=== PATIENT | female | born 1975 | race Caucasian/White ===

== ENCOUNTER 2017-09-25 19:09 | Emergency (ER) | payer BC ==
[~2017-09-25] VITALS: Ht 167.6 cm; Wt 72.6 kg
[2017-09-25 19:24] VITALS: BP_SYST 175
[2017-09-25] MEDS ORDERED: PANTOPRAZOLE SODIUM 40 MG/VIAL (PROTONIX) IVP ONE (20:05)
[2017-09-25] MEDS ORDERED: LORazepam 2 MG/ML VIAL (FOR ER USE) IVP ONE (20:15)
[2017-09-25] MEDS ORDERED: NACL 0.9% 1,000 ML IV ONE (20:15)
[2017-09-25 20:23] LABS: CALCIUM 8.7 mg/dL (8.4-11.0); CREATININE 0.72 mg/dL (0.55-1.30); POTASSIUM 3.9 mmol/L (3.5-5.1)
[2017-09-25 20:24] LABS: RED CELL DISTRIBUTION WIDTH 16.5 % (9.0-15.0); WHITE BLOOD COUNT (AUTO) 7.5 K/uL (4.8-10.8)
[2017-09-25 20:28] LABS: PROTHROMBIN TIME 9.7 SECS (9.5-12.5)
[2017-09-25 20:30] LABS: ALBUMIN 3.2 g/dL (3.4-4.8); TOTAL BILIRUBIN 0.4 mg/dL (0.0-1.0)
[2017-09-25 20:31] LABS: BASOPHILS # (AUTO) 0.1 K/uL (0.0-0.2); BASOPHILS % (AUTO) 0.9 % (0.0-2.0); EOSINOPHILS % (AUTO) 0.4 % (0.0-4.0); HEMATOCRIT 36.9 % (36-48); HEMOGLOBIN 12.2 g/dL (12.0-16.0); LYMPHOCYTES # (AUTO) 1.9 K/uL (1.0-5.5); LYMPHOCYTES % (AUTO) 25.5 % (20.5-51.5); MEAN CORPUSCULAR HEMOGLOBIN 30 pg (27-31); MEAN CORPUSCULAR HGB CONC 33 % (32-36); MEAN CORPUSCULAR VOLUME 92 fL (79.0-98.0); MONOCYTES # (AUTO) 0.3 K/uL (0.0-1.0); MONOCYTES % (AUTO) 4.5 % (1.7-9.3); NEUTROPHILS # (AUTO) 5.2 K/uL (1.8-7.7); NEUTROPHILS % (AUTO) 68.7 % (40.0-70.0); PLATELET COUNT (AUTO) 233 K/uL (130-430); RED BLOOD CELL COUNT(AUTO) 4.03 MIL/uL (4.2-6.2)
[2017-09-25] MEDS ORDERED: KETOROLAC TROMETHAMINE 30 MG VIAL IVP ONE (21:45)
[2017-09-25 22:15] VITALS: BP_SYST 175
== END 2017-09-25 22:15 | disposition home or self-care (01) ==
LOC: SED 19:09
DX: F41.9 Anxiety disorder, unspecified (principal); F10.129 Alcohol abuse with intoxication, unspecified; R03.0 Elevated blood-pressure reading, without diagnosis of hypertension; Z88.0 Allergy status to penicillin; Z98.84 Bariatric surgery status; Y90.8 Blood alcohol level of 240 mg/100 ml or more
CPT/HCPCS: 36415; 80053; 85025; 85610; 85730; 93005; 96361; 96374; 96375; 99285; C9113; G0482; J1885; J2060; J7030

== ENCOUNTER 2017-10-03 16:21 | Inpatient (IN) | payer BC ==
[~2017-10-03] VITALS: Ht 167.6 cm; Wt 72.6 kg
[2017-10-03 16:24] VITALS: BP_SYST 182
[2017-10-03] MEDS ORDERED: ONDANSETRON HCL 4 MG/2 ML VIAL IVP ONE (17:00)
[2017-10-03] MEDS ORDERED: hydrALAZINE HCL 20 MG/ML VIAL IVP ONE (17:00)
[2017-10-03] MEDS ORDERED: NACL 0.9% 1,000 ML IV ONE ×2 (17:00→17:45)
[2017-10-03 17:13] LABS: HEMATOCRIT 34.7 % (36-48); HEMOGLOBIN 11.8 g/dL (12.0-16.0); MEAN CORPUSCULAR HEMOGLOBIN 32 pg (27-31); MEAN CORPUSCULAR HGB CONC 34 % (32-36); MEAN CORPUSCULAR VOLUME 94 fL (79.0-98.0); PLATELET COUNT (AUTO) 198 K/uL (130-430); WHITE BLOOD COUNT (AUTO) 5.9 K/uL (4.8-10.8)
[2017-10-03 17:18] LABS: CALCIUM 8.6 mg/dL (8.4-11.0); CREATININE 0.72 mg/dL (0.55-1.30); POTASSIUM 3.9 mmol/L (3.5-5.1)
[2017-10-03 17:25] LABS: ALBUMIN 3.3 g/dL (3.4-4.8); TOTAL BILIRUBIN 0.5 mg/dL (0.0-1.0)
[2017-10-03] MEDS ORDERED: LORazepam 2 MG/ML VIAL IVP ONE (17:45)
[2017-10-03] MEDS ORDERED: LORazepam 2 MG/ML VIAL (FOR ER USE) IVP ONE ×2 (17:45→18:30)
[2017-10-03 17:49] LABS: BAND % (MANUAL) 3 % (0-6); BASOPHILS % (MANUAL) 0 % (0-2); EOSINOPHILS % (MANUAL) 2 % (0-7); LYMPHOCYTES % (MANUAL) 22 % (20-46); MONOCYTES % (MANUAL) 4 % (0-11)
[2017-10-03 18:03] LABS: BILIRUBIN,URINE NEGATIVE (NEGATIVE); BLOOD, URINE 3+ (NEGATIVE); CLARITY/URINE CLEAR (CLEAR); COLOR,URINE YELLOW (YELLOW); GLUCOSE,URINE NEGATIVE (NEGATIVE); KETONES,URINE NEGATIVE (NEGATIVE); LEUKOCYTE ESTERASE ,URINE NEGATIVE (NEGATIVE); NITRITE, URINE NEGATIVE (NEGATIVE); PROTEIN URINE NEGATIVE (NEGATIVE); UROBILINOGEN,URINE 0.2 (0.2-1.0)
[2017-10-03 18:05] LABS: BACTERIA,URINE FEW /HPF (None Seen); RBC,URINE 0-3 /HPF (0-3); WBC,URINE 0-3 /HPF (0-3)
[2017-10-03 18:07] LABS: BARBITURATE, URINE NEGATIVE (NEG <=200); BENZODIAZEPINE, URINE NEGATIVE (NEG <=150); CANNABINOID, URINE NEGATIVE (NEG <=50); COCAINE, URINE NEGATIVE (NEG <=150); METHAMPHETAMINES SCREEN,URINE NEGATIVE (NEG <=500); OPIATE, URINE NEGATIVE (NEG <=100); PHENCYCLIDINE SCREEN,URINE NEGATIVE (NEG <=25); UR TRICYCLIC ANTIDEPRESSANTS NEGATIVE (NEG <=300); URINE AMPHETAMINE NEGATIVE (NEG <=500); URINE METHADONE NEGATIVE (NEG <=200); URINE OXYCODONE SCREEN NEGATIVE (NEG <=100); URINE PROPOXYPHENE SCREEN NEGATIVE (NEG <=300)
[2017-10-03] MEDS ORDERED: HYDR-4100 PO (18:24)
[2017-10-03] MEDS ORDERED: ALPR1TAB2 PO (18:24)
[2017-10-03] MEDS ORDERED: ZOLP5TAB2 PO (18:24)
[2017-10-03] MEDS ORDERED: LISI-209 PO (18:24)
[2017-10-03 18:51] VITALS: BP_SYST 146
[2017-10-03] MEDS ORDERED: BANANA BAG 1 EA, FOLIC ACID 1 MG, THIAMINE HCL 100 MG, MAGNESIUM SULFATE 1 GM, MVI 10 M... IV SCH ×5 (19:30)
[2017-10-03 20:00] VITALS: BP_SYST 143
[2017-10-03] MEDS: D5NS 1,000 ML IV SCH (20:51)
[2017-10-03] MEDS: chlordiazePOXIDE HCL 25 MG CAPSULE PO SCH ×2 (20:51→21:03)
[2017-10-03] MEDS: MORPHINE 2 MG/ML INJ. SYRINGE IVP PRN (20:52)
[2017-10-04] VITALS: BP_SYST 133
[2017-10-04] MEDS: MORPHINE 2 MG/ML INJ. SYRINGE IVP PRN ×5 (01:40→20:05)
[2017-10-04] MEDS: D5NS 1,000 ML IV SCH ×2 (04:39→20:09)
[2017-10-04] MEDS: LORazepam 2 MG/ML VIAL IVP PRN ×3 (04:44→22:11)
[2017-10-04 08:16] VITALS: BP_SYST 138
[2017-10-04] MEDS: chlordiazePOXIDE HCL 25 MG CAPSULE PO SCH ×3 (09:04→20:04)
[2017-10-04] MEDS ORDERED: BANANA BAG 1 EA, FOLIC ACID 1 MG, THIAMINE HCL 100 MG, MAGNESIUM SULFATE 1 GM, MVI 10 M... IV SCH ×20 (15:30→16:00)
[2017-10-04] MEDS ORDERED: THIAMINE HCL IV SCH (16:00)
[2017-10-04] MEDS ORDERED: MVI IV SCH (16:00)
[2017-10-04] MEDS ORDERED: MAGNESIUM SULFATE IV SCH (16:00)
[2017-10-04] MEDS ORDERED: FOLIC ACID IV SCH (16:00)
[2017-10-04] MEDS ORDERED: [UNRECOGNIZED DRUG - OTHER] IV SCH (16:00)
[2017-10-04 16:30] VITALS: BP_SYST 131
[2017-10-04 20:00] VITALS: BP_SYST 142
[2017-10-05] MEDS: MORPHINE 4 MG/ML INJ. SYRINGE IVP PRN ×6 (00:24→22:54)
[2017-10-05 01:27] VITALS: BP_SYST 144
[2017-10-05] MEDS: D5NS 1,000 ML IV SCH (06:32)
[2017-10-05] MEDS: LORazepam 2 MG/ML VIAL IVP PRN ×4 (06:36→21:20)
[2017-10-05] MEDS: chlordiazePOXIDE HCL 25 MG CAPSULE PO SCH ×3 (08:11→21:19)
[2017-10-05 08:22] VITALS: BP_SYST 142
[2017-10-05 11:40] LABS: EOSINOPHILS # (AUTO) 0.1 K/uL (0.0-0.4); LYMPHOCYTES # (AUTO) 0.7 K/uL (1.0-5.5); LYMPHOCYTES % (AUTO) 11.8 % (20.5-51.5)
[2017-10-05 11:42] LABS: CALCIUM 8.2 mg/dL (8.4-11.0); CREATININE 0.63 mg/dL (0.55-1.30)
[2017-10-05] MEDS ORDERED: THIAMINE HCL 100 MG TABLET PO ONE (11:45)
[2017-10-05 11:46] LABS: MONOCYTES # (AUTO) 0.7 K/uL (0.0-1.0)
[2017-10-05 11:47] LABS: ALBUMIN 2.6 g/dL (3.4-4.8); TOTAL BILIRUBIN 0.4 mg/dL (0.0-1.0)
[2017-10-05 11:53] LABS: BASOPHILS % (AUTO) 0.5 % (0.0-2.0); EOSINOPHILS % (AUTO) 1.4 % (0.0-4.0); HEMOGLOBIN 11.3 g/dL (12.0-16.0); MEAN CORPUSCULAR HEMOGLOBIN 32 pg (27-31); MEAN CORPUSCULAR HGB CONC 33 % (32-36); MEAN CORPUSCULAR VOLUME 95 fL (79.0-98.0); MONOCYTES % (AUTO) 11.1 % (1.7-9.3); NEUTROPHILS # (AUTO) 4.5 K/uL (1.8-7.7); NEUTROPHILS % (AUTO) 75.2 % (40.0-70.0); PLATELET COUNT (AUTO) 166 K/uL (130-430); RED BLOOD CELL COUNT(AUTO) 3.57 MIL/uL (4.2-6.2); RED CELL DISTRIBUTION WIDTH 17.5 % (9.0-15.0)
[2017-10-05 12:48] VITALS: BP_SYST 175
[2017-10-05] MEDS ORDERED: cloNIDine HCL 0.1 MG TABLET PO PRN (13:15)
[2017-10-05] MEDS ORDERED: PANTOPRAZOLE SODIUM 40 MG TAB PO ONE (13:15)
[2017-10-05 16:44] VITALS: BP_SYST 162
[2017-10-06 00:32] VITALS: BP_SYST 148
[2017-10-06] MEDS: LORazepam 2 MG/ML VIAL IVP PRN ×3 (02:41→10:50)
[2017-10-06] MEDS: MORPHINE 4 MG/ML INJ. SYRINGE IVP PRN ×3 (04:18→12:41)
[2017-10-06 07:59] VITALS: BP_SYST 156
[2017-10-06] MEDS: chlordiazePOXIDE HCL 25 MG CAPSULE PO SCH (08:18)
[2017-10-06] MEDS ORDERED: THIAMINE HCL 100 MG TABLET PO SCH (09:00)
[2017-10-06 12:27] VITALS: BP_SYST 131
[2017-10-06 14:46] VITALS: BP_SYST 147
== END 2017-10-06 15:40 | disposition home or self-care (01) | DRG 392 ==
LOC: SED 16:21 → STU 18:25
PROVIDERS: ADMIT Internal Medicine Hospice and Palliative Medicine; ATTEND Internal Medicine Hospice and Palliative Medicine
DX: R11.2 Nausea with vomiting, unspecified (principal); F10.239 Alcohol dependence with withdrawal, unspecified; G89.29 Other chronic pain; F41.9 Anxiety disorder, unspecified; R07.9 Chest pain, unspecified; F10.229 Alcohol dependence with intoxication, unspecified; I10 Essential (primary) hypertension; F32.9 Major depressive disorder, single episode, unspecified; Z98.84 Bariatric surgery status; Z88.0 Allergy status to penicillin; Z79.899 Other long term (current) drug therapy
CPT/HCPCS: 36415; 71045; 80053; 80307; 81000-TC; 82140-TC; 82962; 84484; 85007; 85025; 85027; 93005; 96374; 96375; 96376; 99285; G0482; J0360; J2060; J2270; J2405; J3411; J3475; J3490; J7030; J7042

== ENCOUNTER 2021-10-21 11:55 | Emergency (ER) | payer MEDICAID ==
[~2021-10-21] VITALS: Ht 167.6 cm; Wt 74.8 kg
[~2021-10-21 11:55] MED LIST: LORA-259 PO; PANT20TA2 PO; TRAM50TA2 PO
[2021-10-21 12:07] VITALS: BP_SYST 155
--- NOTE | 2021-10-21 12:10 | NUR ---
Patient triaged and placed in waiting room. VSS and patient appears in no acute distress at this time. Accompanied by SELF, awaiting available bed, and MD notified of need for MSE.
--- NOTE | 2021-10-21 12:57 | NUR ---
Placed in room 3 . Placed on security monitor, blood pressure machine and pulse oximeter. To gown for exam. Side rails up.
--- NOTE | 2021-10-21 12:57 | NUR ---
RECEIVED PT FROM [facility]. PT HAS C/O AB PAIN AND BLOATING. PT IS AAOX4. RESP E/U. NO R/A. DENIES N/V/D/C. ABDOMEN SOFT, ROUND, NONTENDER, DOES NOT APPEAR DISTENDED. BOWEL SOUNDS ACTIVE. PERIPHERAL PULSES NORMAL, NO EDEMA. DENIES PAIN AT THIS TIME.
--- NOTE | 2021-10-21 13:12 | NUR ---
DR. KOLB AT BEDSIDE ASSESSING PT
--- NOTE | 2021-10-21 13:29 | NUR ---
PT TAKEN FOR CT SCAN
[2021-10-21 14:00] LABS: BASOPHILS % (AUTO) 0.6 % (0.0-2.0); EOSINOPHILS % (AUTO) 0.3 % (0.0-4.0); HEMATOCRIT 35.7 % (36-48); HEMOGLOBIN 11.7 g/dL (12.0-16.0); LYMPHOCYTES # (AUTO) 0.9 K/uL (1.0-5.5); LYMPHOCYTES % (AUTO) 12.9 % (20.5-51.5); MEAN CORPUSCULAR HEMOGLOBIN 32 pg (27-31); MEAN CORPUSCULAR HGB CONC 33 % (32-36); MEAN CORPUSCULAR VOLUME 96 fL (79.0-98.0); MONOCYTES # (AUTO) 0.9 K/uL (0.0-1.0); MONOCYTES % (AUTO) 12.9 % (1.7-9.3); NEUTROPHILS # (AUTO) 4.9 K/uL (1.8-7.7); NEUTROPHILS % (AUTO) 73.3 % (40.0-70.0); PLATELET COUNT (AUTO) 235 K/uL (130-430); RED CELL DISTRIBUTION WIDTH 21.3 % (9.0-15.0); WHITE BLOOD COUNT (AUTO) 6.6 K/uL (4.8-10.8)
[2021-10-21 14:28] LABS: CALCIUM 9.3 mg/dL (8.4-11.0); CREATININE 0.65 mg/dL (0.55-1.30); TOTAL BILIRUBIN 0.6 mg/dL (0.0-1.0)
[2021-10-21 14:29] LABS: ALBUMIN 3.2 g/dL (3.4-4.8)
[2021-10-21] MEDS ORDERED: LORA-259 PO (14:58)
[2021-10-21] MEDS ORDERED: HYDR-3917 PO (14:58)
[2021-10-21] MEDS ORDERED: AMOX-423 PO (15:00)
--- NOTE | 2021-10-21 15:25 | NUR ---
Patient given written and verbal discharge instructions and verbalizes understanding. ER MD discussed with patient the results and treatment provided. Patient in stable condition. ID arm band removed. IV catheter removed intact and dressing applied, no active bleeding. Rx of ATIVAN, AUGMENTIN,NORCO given. Patient educated on pain management and to follow up with PMD. Pain Scale 0/10. Opportunity for questions provided and answered. Medication side effect fact sheet provided.
[2021-10-21 16:14] VITALS: BP_SYST 145
== END 2021-10-21 15:25 | disposition home or self-care (01) ==
LOC: SED 11:55
DX: K57.92 Diverticulitis of intestine, part unspecified, without perforation or abscess without bleeding (principal); R10.9 Unspecified abdominal pain; Z88.0 Allergy status to penicillin; Z79.899 Other long term (current) drug therapy
CPT/HCPCS: 36415; 76376; 80053; 81025; 83690; 85025; 99284